=== PATIENT | female | born 1990 | race Caucasian/White ===

== ENCOUNTER 2024-03-11 12:49 | Inpatient (IN) | payer OTHER ==
[2024-03-11 14:39] VITALS: BMI 26.9
[2024-03-11] MEDS ORDERED: BENZONATATE 200 MG CAPSULE PO PRN (15:18)
[2024-03-11] MEDS ORDERED: hydrOXYzine PAMOATE 25 MG CAPSULE (FP) PO PRN (15:18)
[2024-03-11] MEDS ORDERED: guaiFENesin 600 MG TABLET.ER (FP) PO PRN (15:18)
[2024-03-11] MEDS ORDERED: MAG HYDROX/AL HYDROX/SIMETH 30 ML UNIT-DOSE CUP PO PRN (15:18)
[2024-03-11] MEDS ORDERED: NICOTINE POLACRILEX 2 MG LOZENGE BC PRN (15:18)
[2024-03-11] MEDS ORDERED: MAGNESIUM HYDROX 2400MG/30ML ORAL SUSPENSION 30 ML CUP PO PRN (15:18)
[2024-03-11] MEDS ORDERED: BISMUTH SUBSALICYLATE 524 MG/30 ML PO PRN (15:18)
[2024-03-11] MEDS ORDERED: POLYETHYLENE GLYCOL (HEALTHYLAX) 3350 17 GM PACKET PO PRN (15:18)
[2024-03-11] MEDS ORDERED: LOPERAMIDE HCL 2 MG CAPSULE PO PRN (15:18)
[2024-03-11] MEDS ORDERED: DICYCLOMINE HCL 10 MG CAPSULE PO PRN (15:18)
[2024-03-11] MEDS ORDERED: NICOTINE POLACRILEX 2 MG GUM BUC PRN (15:18)
[2024-03-11] MEDS ORDERED: LORazepam 1 MG TABLET PO PRN (15:19)
[2024-03-11] MEDS ORDERED: LORazepam 2 MG TABLET ONE (17:22)
[2024-03-11] MEDS: LORazepam 2 MG TABLET PO SCH (17:25)
[2024-03-11] MEDS: ONDANSETRON *ODT* 4 MG TABLET SL PRN (20:03)
[2024-03-11] MEDS: MELATONIN 5 MG TABLETS PO SCH (22:48)
[2024-03-11] MEDS: METHOCARBAMOL 500 MG TABLET PO PRN (22:48)
[2024-03-11] MEDS: THIAMINE 100 MG TABLET PO SCH (22:50)
[2024-03-12] MEDS: PRENATAL VITAMINS W/ FOLIC ACID TABLET (FP) PO SCH (11:44)
[2024-03-12] MEDS: TOPIRAMATE 25 MG TABLET PO SCH (13:14)
[2024-03-12] MEDS: SERTRALINE HCL 50 MG TABLET (FP) PO SCH (13:14)
[2024-03-12 14:14] LABS: HEMOGLOBIN 8.5 GM/dL (10.7-15.3); MCH 29.5 pg (25.7-33.7); MCHC 32.7 g/dl (32.0-36.0); MEAN CELL VOLUME 90.2 fl (80-96); MEAN PLT VOLUME 8.8 fl (7.5-11.1); PLATELET COUNT 47 10^3/uL (134-434); RBC 2.89 M/mm3 (3.60-5.2); RDW 19.9 % (11.6-15.6); WHITE BLOOD COUNT 2.5 K/mm3 (4.0-10.0)
[2024-03-12 14:47] LABS: POTASSIUM 3.6 mmol/L (3.5-5.1)
[2024-03-12 14:57] LABS: ALBUMIN 2.2 g/dl (3.4-5.0); BLOOD UREA NITROGEN 4.7 mg/dL (7-18); CALCIUM 7.3 mg/dL (8.5-10.1)
[2024-03-12 15:01] LABS: BILIRUBIN,TOTAL 1.9 mg/dL (0.2-1); CREATININE 0.6 mg/dL (0.55-1.3)
[2024-03-12 15:03] LABS: TOT PROT 5.1 g/dl (6.4-8.2)
[2024-03-12] MEDS: TRIMETHOBENZAMIDE HCL 200MG/2ML INJ IM PRN (15:54)
[2024-03-12] MEDS: BENZOCAINE/MENTHOL (CHLORASEPTIC ) LOZENGE MM PRN (15:59)
[2024-03-12 17:01] VITALS: BP 135/81; PULSE 105; RESP 18; TEMP 97.5
[2024-03-12] MEDS ORDERED: SUVOREXANT 10 MG TABLET PO PRN (22:00)
[2024-03-12] MEDS: QUEtiapine FUMARATE 25 MG TABLET PO SCH (23:23)
[2024-03-12] MEDS: RIFAXIMIN 550 MG TABLET PO SCH (23:24)
[2024-03-13] MEDS ORDERED: LORazepam 1 MG TABLET PO SCH (05:00)
[2024-03-13] MEDS ORDERED: SPIRONOLACTONE 25 MG TABLET PO SCH (08:00)
[2024-03-13] MEDS ORDERED: FUROSEMIDE 20 MG TABLET (FP) PO SCH (08:00)
[2024-03-14] MEDS ORDERED: LORazepam 0.5 MG TABLET PO PRN
[2024-03-14] MEDS ORDERED: LORazepam 0.5 MG TABLET PO SCH (05:00)
[2024-03-15] MEDS ORDERED: LORazepam 0.5 MG TABLET PO ONE (05:00)
== END 2024-03-13 04:06 | disposition short-term general hospital (02) | DRG 775 ==
LOC: YASAS 12:49 → Y6N 16:31
PROVIDERS: ADMIT Allergy & Immunology; ATTEND Surgery
PROC: HZ2ZZZZ Detoxification Services for Substance Abuse Treatment (ICD-10-PCS; principal; 2024-03-11)
DX: F10.230 Alcohol dependence with withdrawal, uncomplicated (principal); F13.20 Sedative, hypnotic or anxiolytic dependence, uncomplicated; F12.20 Cannabis dependence, uncomplicated; F17.210 Nicotine dependence, cigarettes, uncomplicated; F25.1 Schizoaffective disorder, depressive type; F32.A Depression, unspecified; F10.282 Alcohol dependence with alcohol-induced sleep disorder; K74.60 Unspecified cirrhosis of liver; R10.9 Unspecified abdominal pain; Z87.19 Personal history of other diseases of the digestive system
CPT/HCPCS: 36415; 80053; 80305; 81025; 82962; 85027; 86780; 93005; 93010; Q0162

== ENCOUNTER 2024-03-12 16:50 | Inpatient (IN) | payer OTHER ==
[2024-03-12 19:11] LABS: BASO % 0.7 % (0-2.0); EOS % 1.3 % (0-4.5); HEMATOCRIT 28.6 % (32.4-45.2); HEMOGLOBIN 9.5 GM/dL (10.7-15.3); LYMPH % 35.1 % (8-40); MCH 29.5 pg (25.7-33.7); MEAN CELL VOLUME 89.3 fl (80-96); MEAN PLT VOLUME 9.3 fl (7.5-11.1); MONO % 6.8 % (3.8-10.2); NEUT % 56.1 % (42.8-82.8); PLATELET COUNT 102 10^3/uL (134-434); RBC 3.21 M/mm3 (3.60-5.2); RDW 19.7 % (11.6-15.6); WHITE BLOOD COUNT 3.4 K/mm3 (4.0-10.0)
[2024-03-12 19:31] LABS: POTASSIUM 4.8 mmol/L (3.5-5.1)
[2024-03-12 19:34] LABS: CALCIUM 7.6 mg/dL (8.5-10.1)
[2024-03-12 19:35] LABS: ALBUMIN 2.5 g/dl (3.4-5.0); BLOOD UREA NITROGEN 5.1 mg/dL (7-18)
[2024-03-12 19:38] LABS: CREATININE 0.8 mg/dL (0.55-1.3)
[2024-03-12 19:39] LABS: TOT PROT 6.1 g/dl (6.4-8.2)
[2024-03-12 19:40] LABS: BILIRUBIN,TOTAL 2.8 mg/dL (0.2-1)
[2024-03-12] MEDS ORDERED: ONDANSETRON 4 MG/2 ML VIAL ONE (19:50)
[2024-03-12] MEDS ORDERED: PANTOPRAZOLE SODIUM 40 MG VIAL ONE (19:50)
[2024-03-12] MEDS: TRIMETHOBENZAMIDE HCL 200MG/2ML INJ IM ONE (20:00)
[2024-03-12] MEDS: SODIUM CHLORIDE 1,000 ML IV STA (20:00)
[2024-03-12] MEDS: ONDANSETRON 4 MG/2 ML VIAL IVPUSH ONE (20:00)
[2024-03-12] MEDS: PANTOPRAZOLE SODIUM 40 MG VIAL IVPUSH ONE (20:00)
[2024-03-12 20:28] LABS: INR 1.86 (0.83-1.09); PROTHROMBIN TIME (PATIENT) 20.6 SEC (9.7-13.0)
[2024-03-12 20:30] LABS: ACTIVATED PTT 37.3 SECONDS (25.2-36.5)
[2024-03-12] MEDS ORDERED: ACETAMINOPHEN INJECTION 100 ML IVPB ONE (20:47)
[2024-03-12] MEDS: ACETAMINOPHEN 1000 MG/100 ML BAG IVPB ONE (20:51)
[2024-03-13] MEDS ORDERED: ONDANSETRON 4 MG/2 ML VIAL ONE (01:23)
[2024-03-13] MEDS: ONDANSETRON 4 MG/2 ML VIAL IVPUSH ONE (02:35)
[2024-03-13] MEDS ORDERED: HYDROmorphone HCL CARPU-JECT 2 MG/1 ML DISP.SYRIN IVPUSH ONE (03:29)
[2024-03-13] MEDS ORDERED: HYDROmorphone HCL CARPU-JECT 2 MG/1 ML DISP.SYRIN ONE (03:36)
[2024-03-13] MEDS: HYDROmorphone HCl 2 MG/ML VIAL IVPUSH ONE (03:41)
[2024-03-13] MEDS: FOLIC ACID INJECTION - 1 MG, THIAMINE HCL 100 MG, MULTIVIT INJECTION ADULT 10 ML in SOD... IVPB ONE (04:23)
[2024-03-13 04:25] LABS: EPI CELLS 16 /uL (0-25.1); HYALINE CASTS 1 /uL (0-3.1); PH,URINE >= 9.0 (5.0-8.0); URINE APPEARANCE CLEAR; URINE BACTERIA 3146 /uL (0-1359); URINE BILIRUBIN 1+ (NEGATIVE); URINE COLOR DK YELLOW; URINE GLUCOSE (UA) NEGATIVE (NEGATIVE); URINE KETONE NEGATIVE (NEGATIVE); URINE LEUK ESTERASE NEGATIVE (NEGATIVE); URINE NITRITE NEGATIVE (NEGATIVE); URINE PROTEIN 2+ (NEGATIVE); URINE RBC 19 /uL (0-23.9); URINE UROBILINOGEN 0.2 mg/dL (0.2-1.0); URINE WBC 2 /uL (0-25.8)
[2024-03-13] MEDS: LORazepam 1 MG TABLET PO SCH (06:40)
[2024-03-13 08:37] LABS: BASO % 0.5 % (0-2.0); EOS % 2.8 % (0-4.5); HEMATOCRIT 27.6 % (32.4-45.2); LYMPH % 50.2 % (8-40); MCH 29.5 pg (25.7-33.7); MCHC 32.8 g/dl (32.0-36.0); MEAN CELL VOLUME 89.9 fl (80-96); MEAN PLT VOLUME 8.6 fl (7.5-11.1); MONO % 7.9 % (3.8-10.2); NEUT % 38.6 % (42.8-82.8); PLATELET COUNT 42 10^3/uL (134-434); RBC 3.07 M/mm3 (3.60-5.2); RDW 20.3 % (11.6-15.6); WHITE BLOOD COUNT 2.2 K/mm3 (4.0-10.0)
[2024-03-13 08:53] LABS: POTASSIUM 3.7 mmol/L (3.5-5.1)
[2024-03-13] MEDS: SODIUM CHLORIDE 1,000 ML IV SCH (09:01)
[2024-03-13 09:03] LABS: CALCIUM 7.4 mg/dL (8.5-10.1)
[2024-03-13 09:04] LABS: ALBUMIN 2.2 g/dl (3.4-5.0); BLOOD UREA NITROGEN 6.2 mg/dL (7-18); MAGNESIUM 1.6 mg/dL (1.8-2.4)
[2024-03-13 09:06] LABS: BILIRUBIN,DIRECT 2.1 mg/dL (0.0-0.2); CREATININE 0.6 mg/dL (0.55-1.3); PHOSPHOROUS 2.3 mg/dL (2.5-4.9)
[2024-03-13] MEDS: SPIRONOLACTONE 25 MG TABLET PO SCH (09:06)
[2024-03-13] MEDS: SERTRALINE HCL 50 MG TABLET (FP) PO SCH (09:06)
[2024-03-13] MEDS: TOPIRAMATE 25 MG TABLET PO SCH (09:06)
[2024-03-13] MEDS: FUROSEMIDE 20 MG TABLET (FP) PO SCH (09:06)
[2024-03-13] MEDS: LORazepam 1 MG TABLET PO PRN (09:06)
[2024-03-13] MEDS: FOLIC ACID 1 MG TABLET (FP) PO SCH (09:06)
[2024-03-13] MEDS: THIAMINE 100 MG TABLET PO SCH (09:06)
[2024-03-13] MEDS: PANTOPRAZOLE SODIUM 40 MG VIAL IVPUSH SCH (09:07)
[2024-03-13 09:08] LABS: TOT PROT 5.6 g/dl (6.4-8.2)
[2024-03-13] MEDS: PHYTONADIONE 10 MG/1 ML AMP IVPB ONE (11:14)
[2024-03-13] MEDS: OCTREOTIDE ACETATE 50 MCG/1 ML - 1 ML VIAL IVPUSH ONE (11:56)
[2024-03-13] MEDS: PANTOPRAZOLE SODIUM 80 MG in SODIUM CHLORIDE 100 ML IVPB SCH (11:57)
[2024-03-13] MEDS: OCTREOTIDE ACETATE 200 MCG, OCTREOTIDE ACETATE 1,000 MCG in DEXTROSE 5%-WATER - 496 ML IVPB SCH (11:58)
[2024-03-13] MEDS ORDERED: MIDAZOLAM HCL 2 MG/2 ML SINGLE DOSE VIAL ONE (12:52)
[2024-03-13] MEDS ORDERED: CEFAZOLIN SODIUM 2 GM VIAL ONE (13:05)
[2024-03-13] MEDS: LACTULOSE 20 GM/30 ML UDC (FOR ORAL USE ONLY) PO SCH (14:27)
[2024-03-13 16:18] VITALS: BMI 28.6
[2024-03-13] MEDS ORDERED: QUEtiapine FUMARATE 25 MG TABLET PO SCH (22:00)
[2024-03-13] MEDS: ZOLPIDEM TARTRATE 5 MG TABLET PO SCH (22:11)
[2024-03-14] MEDS: LORazepam 0.5 MG TABLET PO SCH (04:12)
[2024-03-14 09:16] LABS: INR 1.95 (0.83-1.09); PROTHROMBIN TIME (PATIENT) 21.6 SEC (9.7-13.0)
[2024-03-14] MEDS: FUROSEMIDE 20 MG TABLET (FP) PO SCH (09:19)
[2024-03-14] MEDS: PANTOPRAZOLE 40 MG TABLET PO SCH (09:19)
[2024-03-14 09:20] LABS: BASO % 0.7 % (0-2.0); EOS % 3.7 % (0-4.5); HEMATOCRIT 23.9 % (32.4-45.2); LYMPH % 40.4 % (8-40); MCH 29.6 pg (25.7-33.7); MCHC 33.3 g/dl (32.0-36.0); MEAN CELL VOLUME 88.8 fl (80-96); MONO % 11.1 % (3.8-10.2); NEUT % 44.1 % (42.8-82.8); PLATELET COUNT 41 10^3/uL (134-434); RDW 20.8 % (11.6-15.6); RETICULOCYTES 3.75 % (0.5-1.5); WHITE BLOOD COUNT 2.4 K/mm3 (4.0-10.0)
[2024-03-14] MEDS: SPIRONOLACTONE 25 MG TABLET PO SCH (09:20)
[2024-03-14 09:38] LABS: POTASSIUM 3.4 mmol/L (3.5-5.1)
[2024-03-14 09:43] LABS: ALBUMIN 2.1 g/dl (3.4-5.0); CALCIUM 7.5 mg/dL (8.5-10.1)
[2024-03-14 09:46] LABS: CREATININE 0.7 mg/dL (0.55-1.3)
[2024-03-14 09:48] LABS: BILIRUBIN,TOTAL 2.8 mg/dL (0.2-1); TOT PROT 4.8 g/dl (6.4-8.2)
[2024-03-14] MEDS ORDERED: HYDROmorphone HCl 2 MG/ML VIAL IVPB PRN (11:04)
[2024-03-14] MEDS: ONDANSETRON 4 MG/2 ML VIAL IVPUSH PRN (13:28)
[2024-03-14] MEDS: HYDROmorphone HCL CARPU-JECT 2 MG/1 ML DISP.SYRIN IVPB PRN (13:31)
[2024-03-14] MEDS: oxyCODONE HCL 5 MG TABLET PO ONE (17:03)
[2024-03-14] MEDS: LORazepam 0.5 MG TABLET PO PRN (21:17)
[2024-03-15] MEDS: oxyCODONE HCL 5 MG TABLET PO ONE ×2 (01:15→13:01)
[2024-03-15] MEDS: LORazepam 0.5 MG TABLET PO ONE (05:35)
[2024-03-15 10:17] LABS: BASO % 0.9 % (0-2.0); EOS % 2.8 % (0-4.5); HEMATOCRIT 26.9 % (32.4-45.2); HEMOGLOBIN 8.6 GM/dL (10.7-15.3); LYMPH % 45.9 % (8-40); MCH 29.6 pg (25.7-33.7); MEAN CELL VOLUME 92.6 fl (80-96); MONO % 10.3 % (3.8-10.2); NEUT % 40.1 % (42.8-82.8); PLATELET COUNT 46 10^3/uL (134-434); RBC 2.91 M/mm3 (3.60-5.2); RDW 21.4 % (11.6-15.6); RETICULOCYTES 3.07 % (0.5-1.5); WHITE BLOOD COUNT 2.4 K/mm3 (4.0-10.0)
[2024-03-15 10:44] LABS: POTASSIUM 3.2 mmol/L (3.5-5.1)
[2024-03-15 10:54] LABS: ALBUMIN 2.2 g/dl (3.4-5.0); CALCIUM 7.7 mg/dL (8.5-10.1)
[2024-03-15 10:55] LABS: BLOOD UREA NITROGEN 3.5 mg/dL (7-18)
[2024-03-15 10:58] LABS: CREATININE 0.8 mg/dL (0.55-1.3); TOT PROT 5.2 g/dl (6.4-8.2)
[2024-03-15 11:00] LABS: BILIRUBIN,TOTAL 2.2 mg/dL (0.2-1)
[2024-03-15 15:23] LABS: ANISOCYTOSIS 1+; MACROCYTOSIS 0
[2024-03-15] MEDS: CARVEDILOL 3.125 MG TABLET (FP) PO SCH (21:33)
[2024-03-16] MEDS: hydrOXYzine PAMOATE 25 MG CAPSULE (FP) PO ONE ×2 (00:13→23:29)
[2024-03-16] MEDS: oxyCODONE HCL 5 MG TABLET PO ONE (14:43)
[2024-03-16] MEDS: ALPRAZolam 0.25 MG TABLET PO ONE (16:33)
[2024-03-16] MEDS ORDERED: hydrOXYzine PAMOATE 25 MG CAPSULE (FP) PO ONE (23:15)
[2024-03-17 05:05] VITALS: BP 105/60; PULSE 84; RESP 19; TEMP 98.3
[2024-03-17 10:18] LABS: BASO % 1.1 % (0-2.0); EOS % 2.7 % (0-4.5); HEMATOCRIT 26.9 % (32.4-45.2); HEMOGLOBIN 8.5 GM/dL (10.7-15.3); LYMPH % 43.7 % (8-40); MCH 29.5 pg (25.7-33.7); MCHC 31.7 g/dl (32.0-36.0); MEAN PLT VOLUME 8.4 fl (7.5-11.1); NEUT % 39.5 % (42.8-82.8); PLATELET COUNT 54 10^3/uL (134-434); RBC 2.89 M/mm3 (3.60-5.2); RDW 21.9 % (11.6-15.6); WHITE BLOOD COUNT 2.6 K/mm3 (4.0-10.0)
[2024-03-17 10:45] LABS: POTASSIUM 3.9 mmol/L (3.5-5.1)
[2024-03-17 10:47] LABS: ALBUMIN 2.2 g/dl (3.4-5.0); CALCIUM 7.9 mg/dL (8.5-10.1)
[2024-03-17 10:48] LABS: BLOOD UREA NITROGEN 5.7 mg/dL (7-18)
[2024-03-17 10:50] LABS: CREATININE 0.7 mg/dL (0.55-1.3); PHOSPHOROUS 2.9 mg/dL (2.5-4.9)
[2024-03-17 10:52] LABS: BILIRUBIN,TOTAL 1.9 mg/dL (0.2-1); TOT PROT 5.1 g/dl (6.4-8.2)
[2024-03-17 13:23] LABS: ANISOCYTOSIS 2+; MACROCYTOSIS 1+
[2024-03-17] MEDS: oxyCODONE HCL 5 MG TABLET PO STA (13:45)
== END 2024-03-17 17:45 | disposition home or self-care (01) | DRG 253 ==
LOC: JER 16:50 → JERBED 22:29 → J6S 03-13 05:49
PROVIDERS: ADMIT Internal Medicine; ATTEND Internal Medicine
PROC: 30233R1 Transfusion of Nonautologous Platelets into Peripheral Vein, Percutaneous Approach (ICD-10-PCS; 2024-03-13)
PROC: 0DJ08ZZ Inspection of Upper Intestinal Tract, Via Natural or Artificial Opening Endoscopic (ICD-10-PCS; principal; 2024-03-13 12:00)
DX: K92.0 Hematemesis (principal); D61.818 Other pancytopenia; R45.851 Suicidal ideations; K76.6 Portal hypertension; E80.6 Other disorders of bilirubin metabolism; F10.239 Alcohol dependence with withdrawal, unspecified; I10 Essential (primary) hypertension; J45.909 Unspecified asthma, uncomplicated; K70.31 Alcoholic cirrhosis of liver with ascites; F41.8 Other specified anxiety disorders; K44.9 Diaphragmatic hernia without obstruction or gangrene; R10.9 Unspecified abdominal pain
CPT/HCPCS: 0241U-QW; 36415; 36430; 71045-TC-FY; 73700-TC-RT; 74176-TC; 76705-TC; 80053; 81003; 82105; 82140; 82248; 82272; 82728; 83516; 83540; 83550; 83605; 83690; 83735; 84100; 84703; 85025; 85045; 85610; 85730; 86038; 86704; 86708; 86803; 86850; 86900; 86901; 87086; 87186; 87340; 87517; 93005; 93010; 99285-25; J0131; P9034

== ENCOUNTER 2024-07-17 14:55 | Inpatient (IN) | payer OTHER ==
[2024-07-17 15:44] VITALS: BMI 26.2
[2024-07-17] MEDS ORDERED: LORazepam 1 MG TABLET PO PRN (19:09)
[2024-07-17] MEDS ORDERED: MAG HYDROX/AL HYDROX/SIMETH 30 ML UNIT-DOSE CUP PO PRN (19:18)
[2024-07-17] MEDS ORDERED: LOPERAMIDE HCL 2 MG CAPSULE PO PRN (19:18)
[2024-07-17] MEDS ORDERED: BENZONATATE 200 MG CAPSULE PO PRN (19:18)
[2024-07-17] MEDS ORDERED: MAGNESIUM HYDROX 2400MG/30ML ORAL SUSPENSION 30 ML CUP PO PRN (19:18)
[2024-07-17] MEDS ORDERED: POLYETHYLENE GLYCOL (HEALTHYLAX) 3350 17 GM PACKET PO PRN (19:18)
[2024-07-17] MEDS ORDERED: guaiFENesin 600 MG TABLET.ER (FP) PO PRN (19:18)
[2024-07-17] MEDS ORDERED: NICOTINE POLACRILEX 2 MG LOZENGE BC PRN (19:18)
[2024-07-17] MEDS ORDERED: BISMUTH SUBSALICYLATE 524 MG/30 ML PO PRN (19:18)
[2024-07-17] MEDS ORDERED: DICYCLOMINE HCL 10 MG CAPSULE PO PRN (19:18)
[2024-07-17] MEDS ORDERED: NICOTINE POLACRILEX 2 MG GUM BUC PRN (19:18)
[2024-07-17] MEDS: LORazepam 2 MG TABLET PO SCH (22:35)
[2024-07-17] MEDS: hydrOXYzine PAMOATE 25 MG CAPSULE (FP) PO PRN (22:35)
[2024-07-17] MEDS: THIAMINE 100 MG TABLET PO SCH (22:36)
[2024-07-17] MEDS: MELATONIN 5 MG TABLETS PO SCH (22:36)
[2024-07-18] MEDS: PRENATAL VITAMINS W/ FOLIC ACID TABLET (FP) PO SCH (10:28)
[2024-07-18] MEDS: SERTRALINE HCL 50 MG TABLET (FP) PO SCH (11:28)
[2024-07-18] MEDS: TOPIRAMATE 25 MG TABLET PO SCH (11:28)
[2024-07-18] MEDS: TRIMETHOBENZAMIDE HCL 200MG/2ML INJ IM ONE (12:00)
[2024-07-18] MEDS: BENZOCAINE/MENTHOL (CHLORASEPTIC ) LOZENGE MM PRN (12:32)
[2024-07-18 14:26] LABS: HEMATOCRIT 24.7 % (32.4-45.2); HEMOGLOBIN 8.2 GM/dL (10.7-15.3); MCH 30.8 pg (25.7-33.7); MCHC 33.4 g/dl (32.0-36.0); MEAN CELL VOLUME 92.2 fl (80-96); MEAN PLT VOLUME 9.6 fl (7.5-11.1); PLATELET COUNT 59 10^3/uL (134-434); RBC 2.68 M/mm3 (3.60-5.2); RDW 25.6 % (11.6-15.6); WHITE BLOOD COUNT 4.3 K/mm3 (4.0-10.0)
[2024-07-18] MEDS: ONDANSETRON *ODT* 4 MG TABLET SL PRN (22:38)
[2024-07-18] MEDS: QUEtiapine FUMARATE 25 MG TABLET PO SCH (22:38)
[2024-07-18] MEDS: SUVOREXANT 10 MG TABLET PO PRN (22:39)
[2024-07-19] MEDS: LORazepam 1 MG TABLET PO SCH (05:57)
[2024-07-19 10:38] LABS: CHLORIDE 106 mmol/L (98-107); POTASSIUM 3.8 mmol/L (3.5-5.1); SODIUM 137 mmol/L (136-145)
[2024-07-19 10:41] LABS: CALCIUM 7.3 mg/dL (8.5-10.1)
[2024-07-19 10:42] LABS: ALBUMIN 1.6 g/dl (3.4-5.0); ANION GAP 5 mmol/L (4-13); BLOOD UREA NITROGEN 14.4 mg/dL (7-18); CO2 27 mmol/L (21-32); GLUCOSE,RANDOM 106 mg/dL (74-106)
[2024-07-19 10:45] LABS: CREATININE 1.8 mg/dL (0.55-1.3); SGOT/AST 137 U/L (15-37); SGPT/ALT 40 U/L (13-61)
[2024-07-19 10:46] LABS: TOT PROT 5.1 g/dl (6.4-8.2)
[2024-07-19 10:52] LABS: ALK PHOS 194 U/L (45-117); BILIRUBIN,TOTAL 22.5 mg/dL (0.2-1)
[2024-07-19] MEDS: LORazepam 2 MG/ML SDV VIAL IM ONE (11:30)
[2024-07-19 11:35] VITALS: BP 99/61; PULSE 113; RESP 16; TEMP 97.8
[2024-07-20] MEDS ORDERED: LORazepam 0.5 MG TABLET PO PRN
[2024-07-20] MEDS ORDERED: LORazepam 0.5 MG TABLET PO SCH (05:00)
[2024-07-21] MEDS ORDERED: LORazepam 0.5 MG TABLET PO ONE (05:00)
== END 2024-07-19 19:30 | disposition short-term general hospital (02) | DRG 775 ==
LOC: YASAS 14:55 → Y3N 19:30
PROVIDERS: ADMIT Allergy & Immunology; ATTEND Surgery
PROC: HZ2ZZZZ Detoxification Services for Substance Abuse Treatment (ICD-10-PCS; principal; 2024-07-17)
DX: F10.230 Alcohol dependence with withdrawal, uncomplicated (principal); F12.20 Cannabis dependence, uncomplicated; F17.210 Nicotine dependence, cigarettes, uncomplicated; F25.9 Schizoaffective disorder, unspecified; K70.30 Alcoholic cirrhosis of liver without ascites; Z91.410 Personal history of adult physical and sexual abuse; Z63.0 Problems in relationship with spouse or partner
CPT/HCPCS: 36415; 80053; 80305; 81025; 85027; 86780; Q0162